=== PATIENT | male | born 1985 ===

== ENCOUNTER 2020-06-22 20:52 | Inpatient (IN) | payer OTHER ==
[~2020-06-22] VITALS: Ht 180.3 cm; Wt 63.6 kg
[2020-06-22] MEDS ORDERED: DiphenhydrAMINE HCL 50 MG/ML VIAL IM ONE (22:30)
[2020-06-22] MEDS ORDERED: 0.9% SODIUM CHLORIDE 10 ML SYRINGE IVP PRN (22:30)
[2020-06-22] MEDS ORDERED: SODIUM CHLORIDE 0.9% 1,000 ML IV ONE ×2 (22:30→23:30)
[2020-06-22] MEDS ORDERED: HALOPERIDOL LACTATE 5 MG/ML VIAL IM ONE (22:30)
[2020-06-22 22:31] LABS: GLUCOSE,POINT OF CARE 93 MG/DL (70-110)
[2020-06-22 22:50] LABS: COVID AG,FIA SOURCE NASOPHARYNGEAL
[2020-06-22 22:55] LABS: BASOPHILS % (AUTO) 0.1 % (0.0-2.0); EOSINOPHILS % (AUTO) 0.3 % (1.0-6.0); HEMATOCRIT 49.4 % (41-53); HEMOGLOBIN 16.8 g/dL (13.5-17.5); LYMPHOCYTES # (AUTO) 1.2 K/uL (1.0-4.8); LYMPHOCYTES % (AUTO) 11.4 % (22.0-44.0); MEAN CORPUSCULAR HEMOGLOBIN 30.1 pg (26.0-34.0); MEAN CORPUSCULAR HGB CONC 33.9 G/dL (31.0-37.0); MEAN CORPUSCULAR VOLUME 89 fL (80-100); MONOCYTES # (AUTO) 1.3 K/uL (0.1-1.0); MONOCYTES % (AUTO) 12.4 % (2.0-9.0); NEUTROPHILS # (AUTO) 7.7 K/uL (1.8-7.7); NEUTROPHILS % (AUTO) 75.8 % (40.0-70.0); PLATELET COUNT (AUTO) 203 K/uL (150-450); RED BLOOD CELL COUNT(AUTO) 5.56 MIL/uL (4.50-5.90); RED CELL DISTRIBUTION WIDTH 13.8 % (11.5-14.5)
[2020-06-22 23:09] LABS: APPEARANCE,URINE CLEAR (CLEAR); GLUCOSE, URINE (UA) NEGATIVE (NEGATIVE); KETONES,URINE 40 mg/dL (NEGATIVE); LEUKOCYTE ESTERASE ,URINE NEGATIVE (NEGATIVE); NITRATE,URINE NEGATIVE (NEGATIVE); OCCULT BLOOD,URINE NEGATIVE (NEGATIVE); PH,URINE 5.5 (5.0-8.0); PROTEIN,URINE POS 1+ (NEGATIVE)
[2020-06-22 23:10] LABS: INR 1.1 (0.9-1.1); PROTHROMBIN TIME 11.7 SEC (9.4-11.6)
[2020-06-22 23:15] LABS: AMPHET/METH SCREEN,URINE POSITIVE (NEGATIVE); BARBITURATE SCREEN, URINE NEGATIVE (NEGATIVE); BENZODIAZEPINES SCREEN,URINE POSITIVE (NEGATIVE); CANNABINOID SCREEN,URINE POSITIVE (NEGATIVE); COCAINE SCREEN,URINE NEGATIVE (NEGATIVE); METHADONE SCREEN, URINE NEGATIVE (NEGATIVE); OPIATE SCREEN,URINE NEGATIVE (NEGATIVE)
[2020-06-22 23:15] LABS: ANION GAP 20 mmol/L (8-16); CALCIUM, TOTAL 9.3 mg/dL (8.8-10.5); CARBON DIOXIDE 18 mmol/L (22-29); CHLORIDE 99 mmol/L (98-107); CREATININE 1.25 mg/dL (0.60-1.30); GLOMERULAR FILTR. RATE CALC > 60 mL/min (>60); GLUCOSE,RANDOM 92 mg/dL (70-110); POTASSIUM 3.8 mmol/L (3.5-5.1); SODIUM SERUM 137 mmol/L (136-145); UREA NITROGEN, BLOOD 22 mg/dL (7-18)
[2020-06-22 23:16] LABS: BILIRUBIN,URINE PRELIM. POSITIVE (NEGATIVE)
[2020-06-22 23:17] LABS: PHENCYCLIDINE SCREEN,URINE NEGATIVE (NEGATIVE)
[2020-06-22 23:18] LABS: BACTERIA,URINE None Seen /HPF (None Seen); RBC,URINE 0-2 /HPF (0-2); SQUAMOUS EPITHELIAL CELL,UR Rare /LPF (None Seen); WBC,URINE 0-2 /HPF (0-5)
[2020-06-22 23:22] LABS: TROPONIN I 0.02 ng/mL (0.00-0.05)
[2020-06-22 23:40] LABS: ALANINE AMINOTRANSFERASE 61 U/L (12-78); ALBUMIN 4.2 g/dL (3.4-5.0); ALKALINE PHOSPHATASE 56 U/L (46-116); ASPARTATE AMINOTRANSFERASE 66 U/L (15-37); BILIRUBIN,TOTAL 1.5 mg/dL (0.1-1.0); TOTAL PROTEIN, SERUM 7.5 g/dL (6.4-8.2)
[2020-06-22 23:50] LABS: CREATINE KINASE, TOTAL ONLY 1273 U/L (39-308)
[2020-06-22 23:57] LABS: LACTIC ACID 5.1 mmol/L (0.4-2.0)
[2020-06-23] MEDS ORDERED: HALOPERIDOL 5 MG TABLET PO PRN
[2020-06-23] MEDS ORDERED: ZOLPIDEM TARTRATE 10 MG TABLET PO PRN
[2020-06-23] MEDS ORDERED: LORazepam 2 MG TABLET PO PRN
[2020-06-23] MEDS ORDERED: HALOPERIDOL LACTATE 5 MG/ML VIAL IM ONE (00:15)
[2020-06-23] MEDS ORDERED: LORazepam 2 MG/ML VIAL IVP ONE (00:15)
[2020-06-23] MEDS ORDERED: ONDANSETRON HCL 4 MG/2 ML VIAL IVP PRN (02:15)
[2020-06-23 08:13] VITALS: BP 145/76
[2020-06-23] MEDS: DEXTROSE 5%-LACTATED RINGERS 1,000 ML IV SCH ×2 (09:37→19:48)
[2020-06-23] MEDS ORDERED: RisperiDONE 1 MG TABLET PO SCH (13:30)
[2020-06-23] MEDS ORDERED: BENZOCAINE/MENTHOL LOZENGE [6 LOZENGES/PACKET] PO PRN (16:15)
[2020-06-23 16:19] VITALS: BP 147/74
[2020-06-23 19:42] VITALS: BP 130/71
[2020-06-23] MEDS: RisperiDONE 2 MG TABLET PO SCH (22:04)
[2020-06-23 23:44] VITALS: BP 132/73
[2020-06-24] MEDS: DEXTROSE 5%-LACTATED RINGERS 1,000 ML IV SCH ×2 (01:30→05:02)
[2020-06-24 04:09] VITALS: BP 118/46
[2020-06-24] MEDS: RisperiDONE 2 MG TABLET PO SCH ×2 (08:08→21:15)
[2020-06-24 08:09] VITALS: BP 138/83
[2020-06-24 17:11] VITALS: BP 138/61
[2020-06-24 19:30] VITALS: BP 128/75
[2020-06-25 00:15] VITALS: BP 141/74
[2020-06-25 04:00] VITALS: BP 136/74
[2020-06-25 07:24] VITALS: BP 136/76
[2020-06-25 07:30] VITALS: BP 142/76
[2020-06-25] MEDS: RisperiDONE 2 MG TABLET PO SCH ×2 (08:23→21:03)
[2020-06-25 15:27] VITALS: BP 128/72
[2020-06-25 19:02] VITALS: BP 132/71
[2020-06-26 00:15] VITALS: BP 124/64
[2020-06-26 04:10] VITALS: BP 131/72
[2020-06-26 07:31] VITALS: BP 131/62
[2020-06-26] MEDS: RisperiDONE 2 MG TABLET PO SCH (08:00)
[2020-06-26] MEDS ORDERED: RISP2TAB86 PO (10:52)
== END 2020-06-26 14:20 | disposition home or self-care (01) | DRG 917 ==
LOC: EMS 20:52 → UNDOADMIN 23:53 → B3A 23:53 → 6N 06-23 04:50
PROVIDERS: ADMIT Internal Medicine; ATTEND Internal Medicine
DX: T43.621A Poisoning by amphetamines, accidental (unintentional), initial encounter (principal); G92 Toxic encephalopathy; M62.82 Rhabdomyolysis; F23 Brief psychotic disorder; E87.2 Acidosis; F15.10 Other stimulant abuse, uncomplicated; F12.90 Cannabis use, unspecified, uncomplicated; F43.10 Post-traumatic stress disorder, unspecified; Z78.1 Physical restraint status; Z87.891 Personal history of nicotine dependence; Z20.822 Contact with and (suspected) exposure to COVID-19
CPT/HCPCS: 70450; 71045; 80053; 81001; 82140; 82550; 82962; 83605; 84484; 85025; 85610; 87040; 93005; 99291; G0480; J1630; J2060; 36415-L1; 36415-TC